=== PATIENT | male | born 1950 | race Caucasian/White ===

== ENCOUNTER 2018-08-24 19:22 | Emergency (ER) | payer OTHER ==
[~2018-08-24] VITALS: Ht 172.7 cm; Wt 78.6 kg
[~2018-08-24 19:22] MED LIST: ASPIRIN 81M81 MG/TA2 PO; FISH OIL500 MG PO; LIPITOR 10MG10 MG PO; MULTIPLE VITAMI1 TA5 PO; SYNTHROID0.088 MG/T PO; VENTOLIN0.09 MG IH
[2018-08-24 19:25] VITALS: TEMP 97.7
[2018-08-24 19:52] LABS: BASO # 0.1 (0.0-0.2); BASO % 1.1 % (0.0-2.0); EOS # 0.3 (0.0-0.7); EOS % 3.9 % (0-4.0); GRAN # 4.9 (1.4-6.5); GRAN % 66.7 % (42.2-75.2); HEMATOCRIT 40.5 % (42.0-52.0); HEMOGLOBIN 13.9 g/dl (13.5-18.0); LYMPH # 1.6 (1.2-3.4); LYMPH % 21.3 % (20.0-51.0); MEAN CELL VOLUME 90 fl (80.0-100.0); MEAN CORPUSCULAR HEMOGLOBIN 31 pg (27.0-31.0); MEAN CORPUSCULAR HGB CONC 34 g/dl (33.0-37.0); MEAN PLATELET VOLUME 10.4 fl (7.4-10.4); MONO # 0.5 (0.1-0.6); MONO % 6.7 % (1.7-9.3); PLATELET COUNT 159 K/mm3 (130-400); RED BLOOD COUNT 4.52 M/mm3 (4.20-5.60)
[2018-08-24 19:55] LABS: INR 1.1 (0.8-3.0); PROTHROMBIN TIME 12.3 SECONDS (9.7-12.8)
[2018-08-24 20:01] LABS: ALANINE AMINOTRANSFERASE 21 U/L (21-72); ALBUMIN 4.4 gm/dL (3.5-5.0); ALKALINE PHOSPHATASE 83 U/L (50-136); ANION GAP 9 mmol/L (7-16); AST,SGOT 37 U/L (15-37); BILIRUBIN,TOTAL 0.4 mg/dL (0.0-1.0); BLOOD UREA NITROGEN 13 mg/dL (9-20); CALCIUM 9.2 mg/dL (8.4-10.2); CARBON DIOXIDE 24 mmol/L (22-30); CHLORIDE 102 mmol/L (98-107); CREATININE, serum 0.93 mg/dL (0.66-1.25); GLUCOSE 133 mg/dL (74-106); LIPASE 172 U/L (23-300); POTASSIUM 3.9 mmol/L (3.4-5.0); SODIUM 135 mmol/L (137-145); TOTAL PROTEIN 7.1 gm/dL (6.4-8.2)
[2018-08-24 20:25] LABS: TROPONIN-I < 0.012 ng/mL (0.000-0.035)
[2018-08-24 23:56] VITALS: BP 136/71; PULSE 56
== END 2018-08-25 00:15 | disposition home or self-care (01) ==
LOC: COL.ER 19:22
PROVIDERS: Emergency Medicine
DX: R07.89 Other chest pain (principal); E78.5 Hyperlipidemia, unspecified; Z79.82 Long term (current) use of aspirin
CPT/HCPCS: J7030